=== PATIENT | female | born 1940 | race Caucasian/White ===

== ENCOUNTER → 2020-07-28 | Outpatient (CLI) | payer MEDICARE ==
--- NOTE | 2020-07-28 17:28 | CT ---
EXAMINATION TYPE: CT brain wo con DATE OF EXAM: 07/28/2020 COMPARISON: None HISTORY: Memory loss, other amnesia x [address] DLP: 1101.40 mGycm Automated exposure control for dose reduction was used. Helical imaging through the brain. FINDINGS: There is cortical atrophy. No hemorrhage or hydrocephalus. Cerebral vascular calcifications are prese nt. Periventricular white matter shows patchy low attenuation. Possible small lacunar infarct region of the left basal ganglia. The calvarium is intact. Paranasal sinuses and mastoid air cells as visual ized are normal. IMPRESSION: AGE-RELATED CHANGES OF ATROPHY AND PROBABLE CHRONIC SMALL VESSEL ISCHEMIA.
== END | disposition home or self-care (01) ==
LOC: RADCTMAIN 15:26
PROVIDERS: ATTEND Family Medicine
DX: G31.9 Degenerative disease of nervous system, unspecified (principal)
CPT/HCPCS: 70450

== ENCOUNTER → 2024-03-15 | Day surgery (SDC) | payer MEDICARE ==
[2024-03-15 09:50] VITALS: RESP 18; TEMP 98.1
[2024-03-15 09:55] VITALS: BP 127/76; PULSE 89
--- NOTE | 2024-03-15 11:42 | US ---
CLINICAL INDICATION: Female 83 years old with a history of E04.1 NONTOXIC SINGLE THYROID NODULE. COMPARISON: Ultrasound thyroid study from [facility]. PROCEDURE: ULTRASOUND-GUIDED THYROID LEFTNODULE FNA Pre-procedure diagnosis: Suspicious left thyroid nodule TR3 Post-procedure diagnosis: Same. Anesthesia: Locally anesthetized with 1% lidocaine. Physician: Exam was performed by myself, Dr. Limon EBL: Minimal. Specimens: Five FNA aspirates Condition: Stable. Unanticipated events: None. Procedure Description: Informed consent was obtained. Discussion included possibility of nondiagnostic results. Patient was brought to the ultrasound procedure suite and placed supine upon the table with neck extended. Multi ple grayscale images and real-time imaging was obtained of the thyroid gland. The thyroid gland was s canned. Predominantly solid 1.6 cm left thyroid nodule is redemonstrated. The skin over the procedure site was marked, prepped, and draped in usual sterile fashion. Then a ti meout was then performed. The site was then locally anesthetized with 1% lidocaine. Under direct ult rasound guidance the needle was then localized to the center of this lesion. A total of five 25-gauge FNA samples were obtained from the lesion. Samples were sent to the lab for further evaluation. After the samples were obtained, hemostasis achieved at the site by manual compression. A sterile Ba nd-Aid was placed. Patient tolerated the procedure well with no immediate complication. Patient was subsequently discharged home. IMPRESSION: Successful ultrasound guided FNA with samples sent to pathology for further analysis. [facility], , 03/15/2024 11:40 AM
== END ==
LOC: RADPROMAIN 08:24
PROVIDERS: ATTEND Family Medicine
DX: E04.1 Nontoxic single thyroid nodule (principal)
CPT/HCPCS: 10005; 88173; 88305